=== PATIENT | male | born 1965 | race African-American/Black ===

== ENCOUNTER 2016-06-17 06:52 | Emergency (ER) | payer OTHER ==
[~2016-06-17] VITALS: Ht 172.7 cm; Wt 100.0 kg
[~2016-06-17 06:52] MED LIST: ACET325T PO; AMLO10TA2 PO; CLON.2 PO; COUM4TAB PO; DOCU1CAP39 PO; HYDR25TA35 PO; LISI-515 PO; PRAV40TA2 PO; [UNRECOGNIZED DRUG - CODE] PO
[2016-06-17 06:54] VITALS: BP 177/94; PULSE 62; RESP 15; TEMP 97.9; O2SAT 97
[2016-06-17 07:09] VITALS: BP 137/89; PULSE 62; RESP 18; O2SAT 99
[2016-06-17] MEDS ORDERED: WARF-23 PO (10:37)
== END 2016-06-17 07:19 | disposition left against medical advice (07) ==
LOC: NED 06:52
DX: R51 Headache (principal)
CPT/HCPCS: 99281

== ENCOUNTER 2016-06-17 09:09 | Emergency (ER) | payer OTHER ==
[~2016-06-17] VITALS: Ht 172.7 cm; Wt 94.5 kg
[2016-06-17 09:13] VITALS: BP 138/90; PULSE 68; RESP 16; TEMP 97.7; O2SAT 96
[2016-06-17] MEDS ORDERED: ONDANSETRON HCL 4 MG/2 ML VIAL IV PUSH ONE (10:15)
[2016-06-17] MEDS ORDERED: MORPHINE SULFATE 4 MG/ML INJ IV PUSH ONE (10:15)
[2016-06-17] MEDS ORDERED: SODIUM CHLORID 0.9% 500 ML INJ 500 ML IV ONE (10:15)
--- NOTE | 2016-06-17 10:15 | PD ---
HPI Chief Complaint: Headache Time Seen by Provider: 09:57 Travel History International Travel<30 days: No Contact w/Intl Traveler<30days: No Traveled to known affect area: No History of Present Illness HPI The patient is a 51-year-old [place]ia male who presents emergency department for headache. The patient developed a headache last night watching TV. The headache came on in a subacute timeframe, is located right temporal parietal area, and has persisted throughout the night. The patient then states that the headache resolved this morning, however, has returned. The headache is dull and not associated with any photophobia, blurry vision, nausea, vomiting , or abdominal pain. The patient does have a history of 3 previous CVAs and is currently on Coumadin, which she states was subtherapeutic upon last INR evaluation. The patient states he recently increased his Coumadin dose to 10 mg on Tuesday and Tuesday and 5 mg the remaining days. He denies any acute weakness of the left or right side, however, notes chronic left-sided weakness from previous CVA. PFSH Past Medical History Hx Anticoagulant Therapy: Yes Arthritis: No Asthma: No Autoimmune Disease: No Anxiety: No Depression: No Heart Rhythm Problems: No Cancer: No Cardiovascular Problems: Yes High Cholesterol: Yes Chemotherapy: No Chest Pain: No Congestive Heart Failure: Yes COPD: No Cerebrovascular Accident: Yes Diabetes: No Diminished Hearing: No Endocrine: No GERD: No Genitourinary: Yes Hiatal Hernia: No Hypertension: Yes Immune Disorder: No Kidney Stones: No Musculoskeletal: No Neurologic: Yes Psychiatric: No Reproductive: No Respiratory: No Immunizations Current: Yes Migraines: No Radiation Therapy: No Renal Failure: No Seizures: No Sickle Cell Disease: No Sleep Apnea: No Thyroid Disease: No Ulcer: No Tetanus Vaccination: Unknown Influenza Vaccination: Yes Past Surgical History Surgical History: No Previous Surgery Abdominal Surgery: No AICD: No Arteriovenous Shunt: No Cardiac Surgery: No Ear Surgery: No Endocrine Surgery: No Eye Surgery: No Genitourinary Surgery: No Gynecologic Surgery: No Insulin Pump: No Joint Replacement: No Oral Surgery: No Pacemaker: No Thoracic Surgery: No Other Surgery: No Social History Alcohol Use: No Tobacco Use: No Substance Use: No Allergies-Medications (Allergen,Severity, Reaction): Coded Allergies: No Known Allergies (Unverified , 06/17/16) Reported Meds & Prescriptions Reported Meds & Active Scripts Active Hydralazine (Hydralazine HCl) 25 Mg Tab 25 Mg PO Q8HR Catapres (Clonidine) 0.2 Mg Tab 0.2 Mg PO TID Reported Warfarin 5 Mg Tab 5 Mg PO DAILY Lisinopril 20 Mg Tab 20 Mg PO DAILY Pravastatin 40 Mg Tab 40 Mg PO DAILY Amlodipine (Amlodipine Besylate) 10 Mg Tab 10 Mg PO DAILY Review of Systems Except as stated in HPI: all other systems reviewed are Neg Eyes: No: Blurred Vision, Photophobia HENT: Positive: Headaches, No: Neck Pain Cardiovascular: No: Chest Pain or Discomfort Respiratory: No: Shortness of Breath Gastrointestinal: No: Nausea, Vomiting, Abdominal Pain Musculoskeletal: Positive: Weakness (chronic left-sided weakness from previous CVA, no acute changes per the patient's report) Neurologic: Positive: Weakness (chronic left-sided weakness from previous CVA) , Headache Physical Exam Narrative GENERAL: Awake, alert, pleasant 51-year-old male who appears his stated age and is in no acute respiratory distress. SKIN: Warm and dry. HEAD: Atraumatic. Normocephalic. EYES: Pupils equal and round. Pupils are 2 mm bilateral and reactive. Mild lid lag on the left eye. ENT: No nasal bleeding or discharge. Mucous membranes pink and moist. NECK: Trachea midline. No JVD. CARDIOVASCULAR: Regular rate and rhythm. No murmur appreciated. RESPIRATORY: No accessory muscle use. Clear to auscultation. Breath sounds equal bilaterally. GASTROINTESTINAL: Abdomen soft, non-tender, nondistended. No rebound tenderness. MUSCULOSKELETAL: No obvious deformities. No clubbing. No cyanosis. No edema. NEUROLOGICAL: Awake and alert. No obvious cranial nerve deficits. Mild drift to left lower extremity, no drift of the upper extremities. PSYCHIATRIC: Appropriate mood and affect; insight and judgment normal. Data Data Last Documented VS Vital Signs Date Time Temp Pulse Resp B/P Pulse Ox O2 Delivery O2 Flow Rate FiO2 06/17/16 09:50 Room Air 06/17/16 09:13 97.7 68 16 138/[address] Brain W/O Iv Contrast(Rout) (06/17/16 ) Act Partial Throm Time (Ptt) (06/17/16 10:04) Prothrombin Time / Inr (Pt) (06/17/16 10:04) Complete Blood Count With Diff (06/17/16 10:04) Basic Metabolic Panel (Bmp) (06/17/16 10:04) Morphine Inj (Morphine Inj) (06/17/16 10:15) Ondansetron Inj (Zofran Inj) (06/17/16 10:15) Sodium Chlorid 0.9% 500 Ml Inj (Ns 500 M (06/17/16 10:15) Labs Laboratory Tests Test 06/17/16 10:25 White Blood Count 5.1 TH/MM3 Red Blood Count 6.45 MIL/MM3 Hemoglobin 16.1 GM/DL Hematocrit 49.7 % Mean Corpuscular Volume 77.1 FL Mean Corpuscular Hemoglobin 25.0 PG Mean Corpuscular Hemoglobin 32.4 % Concent Red Cell Distribution Width 16.7 % Platelet Count 311 TH/MM3 Mean Platelet Volume 7.6 FL Neutrophils (%) (Auto) 60.8 % Lymphocytes (%) (Auto) 28.8 % Monocytes (%) (Auto) 7.5 % Eosinophils (%) (Auto) 2.2 % Basophils (%) (Auto) 0.7 % Neutrophils # (Auto) 3.1 TH/MM3 Lymphocytes # (Auto) 1.5 TH/MM3 Monocytes # (Auto) 0.4 TH/MM3 Eosinophils # (Auto) 0.1 TH/MM3 Basophils # (Auto) 0.0 TH/MM3 CBC Comment DIFF FINAL Differential Comment Prothrombin Time 23.1 SEC Prothromb Time International 2.0 RATIO Ratio Activated Partial 41.8 SEC Thromboplast Time Sodium Level 140 MEQ/L Potassium Level 5.6 MEQ/L Chloride Level 108 MEQ/L Carbon Dioxide Level 28.6 MEQ/L Anion Gap 3 MEQ/L Blood Urea Nitrogen 18 MG/DL Creatinine 1.53 MG/DL Estimat Glomerular Filtration 59 ML/MIN Rate Random Glucose 93 MG/DL Calcium Level 8.9 MG/DL [facility] Medical Decision Making Medical Screen Exam Complete: Yes Emergency Medical Condition: Yes Medical Record Reviewed: Yes Interpretation(s) Laboratory Tests Test 06/17/16 10:25 White Blood Count 5.1 TH/MM3 Red Blood Count 6.45 MIL/MM3 Hemoglobin 16.1 GM/DL Hematocrit 49.7 % Mean Corpuscular Volume 77.1 FL Mean Corpuscular Hemoglobin 25.0 PG Mean Corpuscular Hemoglobin 32.4 % Concent Red Cell Distribution Width 16.7 % Platelet Count 311 TH/MM3 Mean Platelet Volume 7.6 FL Neutrophils (%) (Auto) 60.8 % Lymphocytes (%) (Auto) 28.8 % Monocytes (%) (Auto) 7.5 % Eosinophils (%) (Auto) 2.2 % Basophils (%) (Auto) 0.7 % Neutrophils # (Auto) 3.1 TH/MM3 Lymphocytes # (Auto) 1.5 TH/MM3 Monocytes # (Auto) 0.4 TH/MM3 Eosinophils # (Auto) 0.1 TH/MM3 Basophils # (Auto) 0.0 TH/MM3 CBC Comment DIFF FINAL Differential Comment Prothrombin Time 23.1 SEC Prothromb Time International 2.0 RATIO Ratio Activated Partial 41.8 SEC Thromboplast Time Sodium Level 140 MEQ/L Potassium Level 5.6 MEQ/L Chloride Level 108 MEQ/L Carbon Dioxide Level 28.6 MEQ/L Anion Gap 3 MEQ/L Blood Urea Nitrogen 18 MG/DL Creatinine 1.53 MG/DL Estimat Glomerular Filtration 59 ML/MIN Rate Random Glucose 93 MG/DL Calcium Level 8.9 MG/DL Last Impressions Head CT 06/17/16 0000 Signed Impressions: Service Date/Time: June 10:45 - CONCLUSION: Encephalomalacia involving the left medial cerebellum at the site of prior infarct. Stable diffuse white matter atrophy with no evidence of acute abnormality.. Lisa Whitley MD Differential Diagnosis Differential diagnosis includes subarachnoid hemorrhage, intracranial hemorrhage , subdural hemorrhage, tension headache, migraine, temporal arteritis. Narrative Course IV was established, labs were drawn and sent, and the patient was placed on monitoring. CT of the brain was obtained. Platelets, PT/INR, and PTT were sent to lab. The patient was administered morphine, Zofran, and IV fluids for his headache. INR is therapeutic 2.0. Potassium is mildly elevated at 5.6, however, there was moderate hemolysis. Creatinine is slightly elevated at 1.53. CT of the brain reveals chronic changes with encephalomalacia, but no evidence of acute hemorrhage. Patient is stable for outpatient follow-up. The patient was reassessed at 11:16 AM, his headache had resolved. Patient is stable for outpatient follow-up. Diagnosis Primary Impression: Cephalgia Qualified Code: R51 - Acute nonintractable headache, unspecified headache type Additional Instructions: Please provide the patient a copy of his CT results and lab results at discharge. Follow-up with your primary physician. Return if symptoms worsen or progress. Med/Other Pt SpecificInfo: No Change to Meds Disposition: 01 DISCHARGE HOME Condition: Stable Yoshi Moulton MD Jun 17, 2016 10:15
[2016-06-17 10:35] LABS: AUTOMATED NEUTROPHIL # 3.1 TH/MM3 (1.8-7.7); BASOPHIL % 0.7 % (0.0-2.0); EOSINOPHIL # 0.1 TH/MM3 (0-0.4); EOSINOPHIL % 2.2 % (0.0-4.0); HEMATOCRIT 49.7 % (39.0-51.0); HEMO FLAGS DIFF FINAL; LYMPH % 28.8 % (9.0-44.0); LYMPHOCYTE # 1.5 TH/MM3 (1.0-4.8); MEAN CELL VOLUME 77.1 FL (80.0-100.0); MEAN CORPUSCULAR HGB CONC 32.4 % (32.0-36.0); MONO % 7.5 % (0.0-8.0); NEUT % 60.8 % (16.0-70.0); PLATELET COUNT 311 TH/MM3 (150-450); RED BLOOD COUNT 6.45 MIL/MM3 (4.50-5.90); RED CELL DISTRIBUTION WIDTH 16.7 % (11.6-17.2); WHITE BLOOD COUNT 5.1 TH/MM3 (4.0-11.0)
[2016-06-17] MEDS ORDERED: WARF-23 PO (10:37)
[2016-06-17 10:44] LABS: APTT (PATIENT) 41.8 SEC (24.3-30.1); PROTHROMBIN TIME - PATIENT 23.1 SEC (9.8-11.6)
[2016-06-17 10:52] LABS: BICARBONATE 28.6 MEQ/L (21.0-32.0); POTASSIUM 5.6 MEQ/L (3.5-5.1)
--- NOTE | 2016-06-17 10:57 | RADRPT ---
EXAM DATE/TIME: 06/17/2016 10:45 [facility] COMPARISON: MRI BRAIN W/O CONTRAST, December 05, 2014, 12:55. CT BRAIN W/O CONTRAST, December 16, 2013, 11:35. INDICATIONS : Headache for 2 days RADIATION DOSE: 37.47 CTDIvol (mGy) MEDICAL HISTORY : Hypertension. Cardiovascular disease Cerebrovascular disease. SURGICAL HISTORY : None. ENCOUNTER: Initial ACUITY: 2 days PAIN SCALE: 5/10 LOCATION: cranial TECHNIQUE: Multiple contiguous axial images were obtained of the head. Using automated exposure control and adj ustment of the mA and/or kV according to patient size, radiation dose was kept as low as reasonably a chievable to obtain optimal diagnostic quality images. FINDINGS: There is encephalomalacia identified within the posterior and medial left cerebellum at the site of prior infarct. The remainder of the cerebellum is normal in morphology and attenuation. Supratentorially there is stable bilateral periventricular white matter hypodensity and stable m ild prominence of the ventricles and sulci secondary to diffuse white matter atrophy. No evidence of mass effect or midline shift. No evidence of subarachnoid hemorrhage. The sinuses and mastoid air cells are clear. Orbits are normal. Osseous structures are intact. CONCLUSION: Encephalomalacia involving the left medial cerebellum at the site of prior infarct. Stable diffuse wh ite matter atrophy with no evidence of acute abnormality.. Lisa Whitley MD on June 17, 2016 at 10:52 Board Certified Radiologist. This report was verified electronically.
== END 2016-06-17 11:30 | disposition home or self-care (01) ==
LOC: NETRI 09:09
DX: R51 Headache (principal); R82.99 Other abnormal findings in urine; I10 Essential (primary) hypertension; Z79.01 Long term (current) use of anticoagulants; E78.00 Pure hypercholesterolemia, unspecified; I50.9 Heart failure, unspecified; Z86.73 Personal history of transient ischemic attack (TIA), and cerebral infarction without residual deficits
CPT/HCPCS: 70450; 80048; 85025; 85610; 85730; 96361; 96374; 96375; 99284; J2270; J2405; J7040

== ENCOUNTER 2016-08-18 08:18 | Observation (INO) | payer OTHER ==
[2016-08-18] VITALS (7 sets, daily range): BP systolic 135–151; BP diastolic 80–96; PULSE 54–66; RESP 14–20; TEMP 98; O2SAT 97–99
[~2016-08-18] VITALS: Ht 172.7 cm; Wt 95.0 kg
[~2016-08-18 08:18] MED LIST changes: -ACET325T PO; -COUM4TAB PO; -DOCU1CAP39 PO; +WARF-23 PO; -[UNRECOGNIZED DRUG - CODE] PO
[2016-08-18] MEDS ORDERED: SODIUM CHLORIDE 0.9% FLUSH 5 ML FLUSH IVF PRN ×2 (08:45→12:30)
--- NOTE | 2016-08-18 08:48 | PD ---
HPI Chief Complaint: Chest Pain Time Seen by Provider: 08:19 Travel History International Travel<30 days: No Contact w/Intl Traveler<30days: No Traveled to known affect area: No History of Present Illness HPI The patient is a 51-year-old [place] male who presents emergency department via EMS for chest pain. The patient states he developed chest pain yesterday after awakening from bed. The chest pain was left-sided, nonradiating , dull and achy, and constant. The patient denied any shortness breath, nausea , vomiting, or diaphoresis. The patient states the pain was persisting, was alleviated when EMS administered nitroglycerin and an aspirin. The patient does have a history of previous CVA and is currently on Coumadin. He also has a history of hypertension and hyperlipidemia and resides in an [facility]. The patient thinks he may have had a stress test last year performed at [facility]. The patient's primary physician is Dr. Dillon. The patient denies any exertional symptoms. He does note a history of residual left-sided weakness from his previous CVA but is able to ambulate. PFSH Past Medical History Hx Anticoagulant Therapy: Yes Arthritis: No Asthma: No Autoimmune Disease: No Anxiety: No Depression: No Heart Rhythm Problems: No Cancer: No Cardiovascular Problems: Yes High Cholesterol: Yes Chemotherapy: No Chest Pain: No Congestive Heart Failure: Yes COPD: No Cerebrovascular Accident: Yes (X4 TIA) Diabetes: No Diminished Hearing: No Endocrine: No GERD: No Genitourinary: Yes Hiatal Hernia: No Hypertension: Yes Immune Disorder: No Kidney Stones: No Musculoskeletal: No Neurologic: Yes Psychiatric: No Reproductive: No Respiratory: No Immunizations Current: Yes Migraines: No Radiation Therapy: No Renal Failure: No Seizures: No Sickle Cell Disease: No Sleep Apnea: No Thyroid Disease: No Ulcer: No Past Surgical History Abdominal Surgery: No AICD: No Arteriovenous Shunt: No Cardiac Surgery: No Ear Surgery: No Endocrine Surgery: No Eye Surgery: No Genitourinary Surgery: No Gynecologic Surgery: No Insulin Pump: No Joint Replacement: No Oral Surgery: No Pacemaker: No Thoracic Surgery: No Other Surgery: No Social History Alcohol Use: No Tobacco Use: No Substance Use: No Allergies-Medications (Allergen,Severity, Reaction): Coded Allergies: No Known Allergies (Unverified , 08/18/16) Reported Meds & Prescriptions Reported Meds & Active Scripts Active Hydralazine (Hydralazine HCl) 25 Mg Tab 25 Mg PO Q8HR Catapres (Clonidine) 0.2 Mg Tab 0.2 Mg PO TID Reported Hydroxyzine Pamoate 50 Mg Cap 50 Mg PO DAILY Warfarin 5 Mg Tab 5 Mg PO DAILY Lisinopril 20 Mg Tab 20 Mg PO DAILY Pravastatin 40 Mg Tab 40 Mg PO DAILY Amlodipine (Amlodipine Besylate) 10 Mg Tab 10 Mg PO DAILY Review of Systems Except as stated in HPI: all other systems reviewed are Neg General / Constitutional: No: Fever HENT: No: Lightheadedness Cardiovascular: Positive: Chest Pain or Discomfort, No: Diaphoresis, Dyspnea on exertion Respiratory: No: Shortness of Breath Gastrointestinal: No: Nausea, Vomiting, Abdominal Pain Musculoskeletal: Positive: Weakness (residual left-sided weakness from previous CVA) Neurologic: No: Dizziness Physical Exam Narrative GENERAL: Awake, alert, pleasant 51-year-old male who appears his stated age and is in no acute respiratory distress. SKIN: Warm and dry. HEAD: Atraumatic. Normocephalic. EYES: No injection or drainage. ENT: No nasal bleeding or discharge. Mucous membranes pink and moist. NECK: Trachea midline. No JVD. CARDIOVASCULAR: Regular rate and rhythm. No murmur appreciated. Heart rate in the 60s. RESPIRATORY: No accessory muscle use. Clear to auscultation. Breath sounds equal bilaterally. GASTROINTESTINAL: Abdomen soft, non-tender, nondistended. No rebound tenderness. MUSCULOSKELETAL: No obvious deformities. No clubbing. No cyanosis. No edema. NEUROLOGICAL: Awake and alert. No obvious cranial nerve deficits. Moves all 4 extremities. PSYCHIATRIC: Appropriate mood and affect; insight and judgment normal. Data Data Last Documented VS Vital Signs Date Time Temp Pulse Resp B/P Pulse Ox O2 Delivery O2 Flow Rate FiO2 08/18/16 09:29 137/84 135/80 08/18/16 09:24 98 Nasal Cannula 2 08/18/16 09:24 18 08/18/16 08:21 98.0 65 Orders Electrocardiogram (08/18/16 08:40) Ckmb (Isoenzyme) Profile (08/18/16 08:40) Complete Blood Count With Diff (08/18/16 08:40) Comprehensive Metabolic Panel (08/18/16 08:40) Magnesium (Mg) (08/18/16 08:40) Prothrombin Time / Inr (Pt) (08/18/16 08:40) Act Partial Throm Time (Ptt) (08/18/16 08:40) Troponin I (08/18/16 08:40) Lipase (08/18/16 08:40) Chest, Single Ap (08/18/16 08:40) Ecg Monitoring (08/18/16 08:40) Bilateral Bp Monitoring (08/18/16 08:40) Iv Access Insert/Monitor (08/18/16 08:40) Oximetry (08/18/16 08:40) Oxygen Administration (08/18/16 08:40) Sodium Chloride 0.9% Flush (Ns Flush) (08/18/16 08:45) CKMB (08/18/16 10:33) CKMB% (08/18/16 10:33) Admit Order (Ed Use Only) (08/18/16 11:39) Labs Laboratory Tests Test 08/18/16 08/18/16 10:23 10:33 Prothrombin Time 28.5 SEC Prothromb Time International 2.5 RATIO Ratio Activated Partial 48.6 SEC Thromboplast Time White Blood Count 6.4 TH/MM3 Red Blood Count 5.68 MIL/MM3 Hemoglobin 14.7 GM/DL Hematocrit 44.1 % Mean Corpuscular Volume 77.6 FL Mean Corpuscular Hemoglobin 25.8 PG Mean Corpuscular Hemoglobin 33.3 % Concent Red Cell Distribution Width 17.5 % Platelet Count 273 TH/MM3 Mean Platelet Volume 7.3 FL Neutrophils (%) (Auto) 56.3 % Lymphocytes (%) (Auto) 30.1 % Monocytes (%) (Auto) 10.3 % Eosinophils (%) (Auto) 2.7 % Basophils (%) (Auto) 0.6 % Neutrophils # (Auto) 3.6 TH/MM3 Lymphocytes # (Auto) 1.9 TH/MM3 Monocytes # (Auto) 0.7 TH/MM3 Eosinophils # (Auto) 0.2 TH/MM3 Basophils # (Auto) 0.0 TH/MM3 CBC Comment DIFF FINAL Differential Comment Sodium Level 140 MEQ/L Potassium Level 4.5 MEQ/L Chloride Level 105 MEQ/L Carbon Dioxide Level 26.6 MEQ/L Anion Gap 8 MEQ/L Blood Urea Nitrogen 13 MG/DL Creatinine 1.43 MG/DL Estimat Glomerular Filtration 63 ML/MIN Rate Random Glucose 87 MG/DL Calcium Level 8.8 MG/DL Magnesium Level 2.2 MG/DL Total Bilirubin 0.3 MG/DL Aspartate Amino Transf 16 U/L (AST/SGOT) Alanine Aminotransferase 36 U/L (ALT/SGPT) Alkaline Phosphatase 94 U/L Total Creatine Kinase 183 U/L Creatine Kinase MB 1.1 NG/ML Troponin I LESS THAN 0.02 NG/ML Total Protein 7.7 GM/DL Albumin 3.5 GM/DL Lipase 138 U/L Exceptions Acute Myocardial Infarction ASA Not Given on Arrival: Already Given by EMS Aspirin Comment: EMS provided 162 mg of aspirin orally. MDM Medical Decision Making Medical Screen Exam Complete: Yes Emergency Medical Condition: Yes Medical Record Reviewed: Yes Interpretation(s) EKG reveals normal sinus rhythm with a rate of 66. Borderline first-degree AV block with VA interval 211 ms. Inverted T-wave noted in lead 1, aVL, and V6. Mild ST elevation in V3 that is not present in V4 V2, does not meet STEMI criteria. Inverted T waves seen in 1 and aVL as well as V6 are not new compared to EKG performed May 19, 2016. Last Impressions Chest X-Ray 08/18/16 0840 Signed Impressions: Service Date/Time: Thursday, August 18, 2016 08:49 - CONCLUSION: Moderate congestive failure without pneumothorax.. Ag March MD FACR Laboratory Tests Test 08/18/16 08/18/16 10:23 10:33 Prothrombin Time 28.5 SEC Prothromb Time International 2.5 RATIO Ratio Activated Partial 48.6 SEC Thromboplast Time White Blood Count 6.4 TH/MM3 Red Blood Count 5.68 MIL/MM3 Hemoglobin 14.7 GM/DL Hematocrit 44.1 % Mean Corpuscular Volume 77.6 FL Mean Corpuscular Hemoglobin 25.8 PG Mean Corpuscular Hemoglobin 33.3 % Concent Red Cell Distribution Width 17.5 % Platelet Count 273 TH/MM3 Mean Platelet Volume 7.3 FL Neutrophils (%) (Auto) 56.3 % Lymphocytes (%) (Auto) 30.1 % Monocytes (%) (Auto) 10.3 % Eosinophils (%) (Auto) 2.7 % Basophils (%) (Auto) 0.6 % Neutrophils # (Auto) 3.6 TH/MM3 Lymphocytes # (Auto) 1.9 TH/MM3 Monocytes # (Auto) 0.7 TH/MM3 Eosinophils # (Auto) 0.2 TH/MM3 Basophils # (Auto) 0.0 TH/MM3 CBC Comment DIFF FINAL Differential Comment Sodium Level 140 MEQ/L Potassium Level 4.5 MEQ/L Chloride Level 105 MEQ/L Carbon Dioxide Level 26.6 MEQ/L Anion Gap 8 MEQ/L Blood Urea Nitrogen 13 MG/DL Creatinine 1.43 MG/DL Estimat Glomerular Filtration 63 ML/MIN Rate Random Glucose 87 MG/DL Calcium Level 8.8 MG/DL Magnesium Level 2.2 MG/DL Total Bilirubin 0.3 MG/DL Aspartate Amino Transf 16 U/L (AST/SGOT) Alanine Aminotransferase 36 U/L (ALT/SGPT) Alkaline Phosphatase 94 U/L Total Creatine Kinase 183 U/L Creatine Kinase MB 1.1 NG/ML Troponin I LESS THAN 0.02 NG/ML Total Protein 7.7 GM/DL Albumin 3.5 GM/DL Lipase 138 U/L Differential Diagnosis Differential diagnoses includes acute coronary syndrome, pancreatitis, pleural effusion, pneumonia, musculoskeletal pain, GERD, esophageal spasm. Narrative Course IV was established, labs were drawn and sent, and the patient was placed on cardiac telemetry monitoring and continuous pulse oximetry monitoring. EKG was ordered and interpreted. The patient received aspirin and nitroglycerin by EMS prior to arrival with alleviation of his symptoms. PTT/INR was sent to lab. Chest x-ray was obtained. INR is therapeutic at 2.5. Troponin is negative. Chest x-ray read by radiology says moderate CHF, however, when compared to previous chest x-ray, appears improved. The patient has no shortness of breath but chest pain, I reviewed the EMR, cannot find an old stress test in the last 3 years. Therefore, patient will be 23 hour observation to the chest pain Center. Physician Communication Physician Communication The patient will be a 23 hour observation to chest pain center for serial cardiac enzymes and further evaluation by cardiology. Diagnosis Primary Impression: Chest pain Qualified Code: R07.9 - Chest pain, unspecified type Admitting Information Admitting Physician Requests: Observation Condition: Stable Yoshi Moulton MD Aug 18, 2016 08:48
--- NOTE | 2016-08-18 09:10 | RADRPT ---
EXAM DATE/TIME: 08/18/2016 08:49 [facility] COMPARISON: CHEST SINGLE AP, December 08, 2014, 13:55. INDICATIONS : Chest Pain MEDICAL HISTORY : Hypertension. Cardiovascular disease. Cerebrovascular disease. SURGICAL HISTORY : None. ENCOUNTER: Initial ACUITY: 1 day PAIN SCORE: 7/10 LOCATION: Bilateral chest FINDINGS: There is moderate interstitial edema and cardiomegaly consistent with congestive failure. There is no pneumothorax. The portion of the bony skeleton visualized is unremarkable. CONCLUSION: Moderate congestive failure without pneumothorax.. Ag March MD FACR on August 18, 2016 at 9:08 Board Certified Radiologist. This report was verified electronically.
[2016-08-18] MEDS ORDERED: HYDR50CA PO (09:24)
[2016-08-18 11:03] LABS: AUTOMATED NEUTROPHIL # 3.6 TH/MM3 (1.8-7.7); BASOPHIL % 0.6 % (0.0-2.0); EOSINOPHIL # 0.2 TH/MM3 (0-0.4); EOSINOPHIL % 2.7 % (0.0-4.0); HEMATOCRIT 44.1 % (39.0-51.0); HEMO FLAGS DIFF FINAL; LYMPH % 30.1 % (9.0-44.0); LYMPHOCYTE # 1.9 TH/MM3 (1.0-4.8); MEAN CELL VOLUME 77.6 FL (80.0-100.0); MEAN CORPUSCULAR HEMOGLOBIN 25.8 PG (27.0-34.0); MEAN CORPUSCULAR HGB CONC 33.3 % (32.0-36.0); MONO % 10.3 % (0.0-8.0); NEUT % 56.3 % (16.0-70.0); PLATELET COUNT 273 TH/MM3 (150-450); RED BLOOD COUNT 5.68 MIL/MM3 (4.50-5.90); RED CELL DISTRIBUTION WIDTH 17.5 % (11.6-17.2); WHITE BLOOD COUNT 6.4 TH/MM3 (4.0-11.0)
[2016-08-18 11:12] LABS: APTT (PATIENT) 48.6 SEC (24.3-30.1); INTERNATIONAL NORMALIZED RATIO 2.5 RATIO; PROTHROMBIN TIME - PATIENT 28.5 SEC (9.8-11.6)
[2016-08-18 11:21] LABS: ALT (GPT) 36 U/L (12-78); ANION GAP 8 MEQ/L (5-15); AST (GOT) 16 U/L (15-37); BICARBONATE 26.6 MEQ/L (21.0-32.0); BLOOD UREA NITROGEN 13 MG/DL (7-18); CHLORIDE 105 MEQ/L (98-107); GLOMERULAR FILTRATION RATE 63 ML/MIN (>89); MAGNESIUM 2.2 MG/DL (1.5-2.5); POTASSIUM 4.5 MEQ/L (3.5-5.1); SODIUM (NA) 140 MEQ/L (136-145)
[2016-08-18 11:25] LABS: ALKALINE PHOSPHATASE 94 U/L (45-117); CREATINE KINASE 183 U/L (39-308); TOTAL BILIRUBIN ADULT 0.3 MG/DL (0.2-1.0)
[2016-08-18 11:37] LABS: CKMB 1.1 NG/ML (0.5-3.6)
[2016-08-18] MEDS ORDERED: ACETAMINOPHEN/HYDROcodone 325 MG/7.5 MG TAB PO PRN (12:30)
[2016-08-18] MEDS ORDERED: ACETAMINOPHEN 500 MG CPLT PO PRN (12:30)
[2016-08-18] MEDS ORDERED: ONDANSETRON HCL 4 MG/2 ML VIAL IV PRN (12:30)
--- NOTE | 2016-08-18 12:50 | RADRPT ---
EXAM DATE/TIME: 08/18/2016 12:48 [facility] COMPARISON: CHEST PA & LAT, December 07, 2014, 10:51. INDICATIONS : Short of Breath MEDICAL HISTORY : Hypertension. Cardiovascular disease. Cerebrovascular disease. SURGICAL HISTORY : None. ENCOUNTER: Subsequent ACUITY: 1 day PAIN SCORE: 0/10 LOCATION: Bilateral chest FINDINGS: The lungs are clear. The heart is minimally enlarged. The pulmonary vascularity is normal. There is n o evidence for infiltrate or failure. The portion of the bony skeleton visualized is unremarkable. CONCLUSION: Compensated cardiomegaly otherwise negative. Ag March MD FACR on August 18, 2016 at 12:48 Board Certified Radiologist. This report was verified electronically.
--- NOTE | 2016-08-18 13:14 | HHI.HP ---
[facility] Primary Care Physician Hernán Gonzalez M.D. Chief Complaint Chest pain History of Present Illness This is a 51-year-old male with history of hypertension, hyperlipidemia, and CVA that presents via [facility] with a complaint of chest discomfort. He states he had a left-sided chest discomfort that began yesterday morning and remainder all day and all night. Is there when he woke up this morning. At that point he called 911. He states that the paramedics gave him aspirin and supplemental nitroglycerin in the pain resolve within 5 minutes. The discomfort has not recurred. He had no associated shortness breath nausea or diaphoresis. The discomfort did not radiate. He found nothing to worsen the discomfort. He has not noticed swelling in his legs. Denies dyspnea on exertion. Review of Systems General: Patient denies fevers, chills recent, and recent travel HEENT: Patient denies headache, sore throat, difficulty swallowing. Cardiovascular: Has the chest discomfort as mentioned above. Denies sensation of heart beating rapidly or irregularly. No syncope. Respiratory: Denies shortness of breath or inspirational chest discomfort. Denies coughing wheezing or hemoptysis. GI: Patient denies nausea, vomiting, diarrhea, abdominal pain, bloody stools. Musculoskeletal: Patient denies joint pain or edema. Denies calf pain or edema. Neurovascular: Patient denies numbness, tingling in extremities. Denies headache. For the most part his symptoms from prior CVAs have resolved. He does have a little residual weakness in his left upper lower extremities when he uses those extremities too much. Endocrine: Denies polyuria and polydipsia. Hematologic: Denies easy bruising. Skin: Denies rash or itching. Past Family Social History Allergies: Coded Allergies: No Known Allergies (Unverified , 08/18/16) Past Medical History Hypertension, hyperlipidemia, CVA 3 with his first being in 2010 was recently 2014. He always affected the left side. Denies diabetes and known CAD. Past Surgical History Denies Reported Medications Reported Meds & Active Scripts Active Hydralazine (Hydralazine HCl) 25 Mg Tab 25 Mg PO Q8HR Catapres (Clonidine) 0.2 Mg Tab 0.2 Mg PO TID Reported Hydroxyzine Pamoate 50 Mg Cap 50 Mg PO DAILY Warfarin 5 Mg Tab 5 Mg PO DAILY Lisinopril 20 Mg Tab 20 Mg PO DAILY Pravastatin 40 Mg Tab 40 Mg PO DAILY Amlodipine (Amlodipine Besylate) 10 Mg Tab 10 Mg PO DAILY Active Ordered Medications Current Medications Medications (Trade) Dose Ordered Sig/[place] Route Start Time Stop Time Status Last Admin (NS Flush) 2 ml UNSCH PRN IVF 08/18/16 08:45 (NS Flush) 2 ml UNSCH PRN IVF 08/18/16 12:30 UNV (NS Flush) 2 ml BID IVF 08/18/16 21:00 UNV (Tylenol) 500 mg Q4H PRN PO 08/18/16 12:30 UNV ([place] 7.5-325 Mg) 1 tab Q4H PRN PO 08/18/16 12:30 UNV (Zofran Inj) 4 mg Q6H PRN IV 08/18/16 12:30 UNV (Coumadin) 5 mg DAILY PO 08/18/16 16:00 UNV (Norvasc) 10 mg DAILY PO 08/19/16 09:00 UNV (Catapres) 0.2 mg TID PO 08/18/16 13:00 UNV (Apresoline) 25 mg Q8HR PO 08/18/16 14:00 UNV (Vistaril) 50 mg DAILY PO 08/19/16 09:00 UNV (Prinivil) 20 mg DAILY PO 08/19/16 09:00 UNV (Pravachol) 40 mg DAILY PO 08/19/16 09:00 UNV Family History Denies family history of CAD. Social History Patient does not smoke, drink alcohol, or use illicit drugs. Physical Exam Vital Signs Vital Signs Date Time Temp Pulse Resp B/P Pulse Ox O2 Delivery O2 Flow Rate FiO2 08/18/16 11:00 54 14 142/90 97 Nasal Cannula 2 08/18/16 09:29 137/84 135/80 08/18/16 09:24 98 Nasal Cannula 2 08/18/16 09:24 18 98 Nasal Cannula 2 08/18/16 08:21 98.0 65 20 137/84 99 Physical Exam GENERAL: This is a well-nourished, well-developed patient, in no apparent distress. Patient speaks in clear complete sentences. Patient is pleasant. HEENT: Head is atraumatic and normocephalic. Neck is supple without lymphadenopathy and trachea is midline. No JVD or carotid bruits. CARDIOVASCULAR: Regular rate and rhythm without murmurs, gallops, or rubs. RESPIRATORY: Clear to auscultation. Breath sounds equal bilaterally. No wheezes , rales, or rhonchi. Chest wall is nontender. No use of accessory muscles. GASTROINTESTINAL: Abdomen is nontender, nondistended. Abdomen soft. No obvious pulsatile mass or bruit. No CVA tenderness. Strong femoral pulses bilaterally. Normal bowel sounds in all quadrants. MUSCULOSKELETAL: Patient is moving upper and lower extremities freely. No calf tenderness or edema, no Homans sign. Strong pulses in upper and lower extremities. NEUROLOGICAL: Patient is alert and oriented. Cranial nerves 2-12 are grossly intact. No focal deficits and speech is clear. SKIN: No rash and turgor is normal. Laboratory Laboratory Tests Test 08/18/16 08/18/16 10:23 10:33 Prothrombin Time 28.5 Prothromb Time International 2.5 Ratio Activated Partial 48.6 Thromboplast Time White Blood Count 6.4 Red Blood Count 5.68 Hemoglobin 14.7 Hematocrit 44.1 Mean Corpuscular Volume 77.6 Mean Corpuscular Hemoglobin 25.8 Mean Corpuscular Hemoglobin 33.3 Concent Red Cell Distribution Width 17.5 Platelet Count 273 Mean Platelet Volume 7.3 Neutrophils (%) (Auto) 56.3 Lymphocytes (%) (Auto) 30.1 Monocytes (%) (Auto) 10.3 Eosinophils (%) (Auto) 2.7 Basophils (%) (Auto) 0.6 Neutrophils # (Auto) 3.6 Lymphocytes # (Auto) 1.9 Monocytes # (Auto) 0.7 Eosinophils # (Auto) 0.2 Basophils # (Auto) 0.0 CBC Comment DIFF FINAL Differential Comment Sodium Level 140 Potassium Level 4.5 Chloride Level 105 Carbon Dioxide Level 26.6 Anion Gap 8 Blood Urea Nitrogen 13 Creatinine 1.43 Estimat Glomerular Filtration 63 Rate Random Glucose 87 Calcium Level 8.8 Magnesium Level 2.2 Total Bilirubin 0.3 Aspartate Amino Transf 16 (AST/SGOT) Alanine Aminotransferase 36 (ALT/SGPT) Alkaline Phosphatase 94 Total Creatine Kinase 183 Creatine Kinase MB 1.1 Troponin I LESS THAN 0.02 Total Protein 7.7 Albumin 3.5 Lipase 138 Result Diagram: 08/18/16 1033 08/18/16 1033 Imaging Vital Signs Date Time Temp Pulse Resp B/P Pulse Ox O2 Delivery O2 Flow Rate FiO2 08/18/16 11:00 54 14 142/90 97 Nasal Cannula 2 08/18/16 09:29 137/84 135/80 08/18/16 09:24 98 Nasal Cannula 2 08/18/16 09:24 18 98 Nasal Cannula 2 08/18/16 08:21 98.0 65 20 137/84 99 Last 24 hours Impressions Chest X-Ray 08/18/16 0840 Signed Impressions: Service Date/Time: Thursday, August 18, 2016 08:49 - CONCLUSION: Moderate congestive failure without pneumothorax.. Ag March MD FACR Chest X-Ray 08/18/16 0000 Signed Impressions: Service Date/Time: Thursday, August 18, 2016 12:48 - CONCLUSION: Compensated cardiomegaly otherwise negative. Ag March MD FACR Course Initial EKG is sinus rhythm rate of 66 with nonspecific lateral T changes. No significant ST segment depressions or elevations. Assessment and Plan Assessment and Plan * Chest pain: Patient will continue to have serial cardiac enzymes and EKGs for ruling out purposes and will be seen by Dr. Myrick cardiology in the chest pain center. He will likely have a Lexiscan. He would likely be discharged home if the stress test were to be nonischemic. * Hypertension: Continue current medication. * Hyperlipidemia: Continue current medication. * History of CVA: Continue current medication. Patient is stable this time. He is agreeable to this plan. He will need to follow back with his primary care physician after discharge. Del Chowdary Aug 18, 2016 13:14
[2016-08-18] MEDS: cloNIDine HCL 0.2 MG TAB PO SCH ×2 (13:35→18:34)
[2016-08-18] MEDS ORDERED: hydrALAZINE HCL 25 MG TAB PO SCH (14:00)
[2016-08-18 14:08] LABS: CREATINE KINASE 232 U/L (39-308)
[2016-08-18 14:26] LABS: CKMB 1.1 NG/ML (0.5-3.6)
[2016-08-18] MEDS ORDERED: WARFARIN SOD 5 MG TAB PO SCH (16:00)
[2016-08-18] MEDS ORDERED: REGADENOSON INJ 0.4 MG/5 ML SYR ONE (16:40)
--- NOTE | 2016-08-18 17:16 | RADRPT ---
EXAM DATE/TIME: 08/18/2016 15:23 [place] COMPARISON: No previous studies available for comparison. INDICATIONS : Substernal chest pain without radiation. Angina. DOSE: 26.7 mCi Tc99m Myoview at stress. 8.1 mCi Tc99m Myoview at rest. 0.4 mg Lexiscan STRESS SYMPTOMS: Shortness of breath. EJECTION FRACTION: 42% MEDICAL HISTORY : Hypertension. Stroke Hyperlipidemia. SURGICAL HISTORY : None. ENCOUNTER: Initial ACUITY: 1 day PAIN SCALE: 7/10 LOCATION: Substernal chest TECHNIQUE: The patient underwent pharmacologic stress with infusion of prescribed dose. Continuous ECG tracing was monitored during stress. Gated SPECT imaging was performed after stress and conventional SPECT i maging was performed at rest. The examination was performed on a SPECT/CT scanner, both attenuation and non-corrected datasets were reviewed. FINDINGS: DISTRIBUTION: The maximum perfused segment at stress is in the anterior wall. PERFUSION STUDY: There is decreased activity on the stress images at the apical inferior wall and inferior lateral wal l. There is a mild area of decreased activity at the basilar upper septum. GATED STUDY: There is hypokinesis and a reduced ejection fraction. No dyskinetic segment is seen. CONCLUSION: 1. Suspect ischemia at the apical inferior and inferolateral hope and possibly at the basilar upper septum. 2. Decreased ejection fraction of 41%. RISK CATEGORY: Intermediate (1-3% Annual Mortality Rate) Hernán Jones MD on August 18, 2016 at 17:11 Board Certified Radiologist. This report was verified electronically.
--- NOTE | 2016-08-18 18:14 | HHI.DCPOC ---
Discharge Care Plan Diagnosis: (1) Chest pain (2) HTN (hypertension) (3) Hyperlipidemia (4) History of CVA (cerebrovascular accident) Goals to Promote Your Health WILL NEED TO HAVE OUTPATIENT 2D ECHO TO EVALUATE HEART FUNCTION, DISCUSS WITH YOUR PRIMARY CARE PHYSICIAN. * To prevent worsening of your condition and complications * To maintain your health at the optimal level Directions to Meet Your Goals Take your medications as prescribed Follow your dietary instruction Follow activity as directed Keep your appointments as scheduled Take your immunizations and boosters as scheduled If your symptoms worsen call your PCP, if no PCP go to Urgent Care Center or Emergency Room Smoking is Dangerous to Your Health. Avoid second hand smoke Call the 24-hour hour crisis hotline for domestic abuse at Del Chowdary Aug 18, 2016 18:14
[2016-08-18] MEDS ORDERED: SODIUM CHLORIDE 0.9% FLUSH 5 ML FLUSH IVF SCH (21:00)
[2016-08-19] MEDS ORDERED: LISINOPRIL 20 MG TAB PO SCH (09:00)
[2016-08-19] MEDS ORDERED: PRAVASTATIN SOD 40 MG TAB PO SCH (09:00)
--- NOTE | 2016-08-19 14:14 | EKG ---
Date Performed: 08/18/2016 Time Performed: 08:23:29 PTAGE: 51 years EKG: Sinus rhythm WITH FIRST DEGREE AV BLOCK MODERATE INTRAVENTRICULAR CONDUCTION DELAY MODERATE T-WAVE ABNORMALITY, C ONSIDER LATERAL ISCHEMIA ABNORMAL ECG PREVIOUS TRACING : 05/19/2016 08.16 DOCTOR: Lalo Verdugo Interpretating Date/Time 08/19/2016 14:02:59
--- NOTE | 2016-08-19 21:17 | EKG ---
Date Performed: 08/18/2016 Time Performed: 13:18:38 PTAGE: 51 years EKG: SINUS BRADYCARDIA WITH FIRST DEGREE AV BLOCK LEFT VENTRICULAR HYPERTROPHY AND ST-T CHANGE A BNORMAL ECG Since PREVIOUS TRACING , no significant change noted PREVIOUS TRACIN08/18/2016 08.23 DOCTOR: Peggy Myrick Interpretating Date/Time 08/19/2016 21:15:47
--- NOTE | 2016-08-19 21:17 | TR ---
Date Performed: 08/18/2016 Time Performed: 16:18:43 DOCTOR: Peggy Myrick DRUG LIST: CLINICAL HISTORY: REASON FOR TEST: REASON FOR ENDING: OBSERVATION: CONCLUSION: Lexiscan stress test was performed under standard four minute protocol. Radionuclid e was injected one minute prior to ending the test. No electrocardiographic abormalities were present to suggest ischemia. Nuclear imaging and interpretation are pending. COMMENTS:
== END 2016-08-18 20:06 | disposition home or self-care (01) ==
LOC: NEPE 08:18 → NEDA 11:40 → NEPHCDU 15:46
PROVIDERS: ADMIT Internal Medicine Interventional Cardiology; ATTEND Internal Medicine Interventional Cardiology
DX: R07.9 Chest pain, unspecified (principal); E78.5 Hyperlipidemia, unspecified; I11.0 Hypertensive heart disease with heart failure; E78.00 Pure hypercholesterolemia, unspecified; I50.9 Heart failure, unspecified; I69.954 Hemiplegia and hemiparesis following unspecified cerebrovascular disease affecting left non-dominant side; Z79.01 Long term (current) use of anticoagulants
CPT/HCPCS: 71010; 71020; 78452; 80053; 82550; 82552; 83690; 83735; 84484; 85025; 85610; 85730; 93005; 93017; 99285; A9502; G0378; J2785

== ENCOUNTER 2016-08-20 13:40 | Emergency (ER) | payer OTHER ==
[~2016-08-20] VITALS: Ht 172.7 cm; Wt 95.0 kg
[~2016-08-20 13:40] MED LIST changes: +HYDR50CA PO
[2016-08-20 13:44] VITALS: BP 135/80; PULSE 69; RESP 18; TEMP 98; O2SAT 97
[2016-08-20 13:53] VITALS: O2SAT 99
[2016-08-20] MEDS ORDERED: ASPIRIN 81 MG CHEW TAB PO ONE (14:00)
[2016-08-20] MEDS ORDERED: SODIUM CHLORIDE 0.9% FLUSH 5 ML FLUSH IVF PRN (14:00)
[2016-08-20] MEDS ORDERED: KETOROLAC TROMETHAMINE 30 MG/ML (IVP) VIAL IV PUSH ONE (14:00)
[2016-08-20] MEDS: NITROGLYCERIN 0.4 MG SL 25 TABS/BTL SL SCH ×3 (14:00→14:10)
[2016-08-20 14:06] LABS: AUTOMATED NEUTROPHIL # 3.7 TH/MM3 (1.8-7.7); BASOPHIL % 0.5 % (0.0-2.0); EOSINOPHIL # 0.2 TH/MM3 (0-0.4); EOSINOPHIL % 2.5 % (0.0-4.0); HEMATOCRIT 46.8 % (39.0-51.0); HEMO FLAGS DIFF FINAL; LYMPH % 30.9 % (9.0-44.0); MEAN CORPUSCULAR HEMOGLOBIN 25.7 PG (27.0-34.0); MEAN CORPUSCULAR HGB CONC 32.9 % (32.0-36.0); MONO % 8.5 % (0.0-8.0); NEUT % 57.6 % (16.0-70.0); PLATELET COUNT 273 TH/MM3 (150-450); RED CELL DISTRIBUTION WIDTH 17.6 % (11.6-17.2); WHITE BLOOD COUNT 6.5 TH/MM3 (4.0-11.0)
[2016-08-20 14:24] LABS: ANION GAP 8 MEQ/L (5-15); BICARBONATE 24.7 MEQ/L (21.0-32.0); BLOOD UREA NITROGEN 17 MG/DL (7-18); CHLORIDE 106 MEQ/L (98-107); GLOMERULAR FILTRATION RATE 57 ML/MIN (>89); POTASSIUM 4.2 MEQ/L (3.5-5.1); SODIUM (NA) 139 MEQ/L (136-145)
[2016-08-20] MEDS ORDERED: PROT40TA PO (14:35)
--- NOTE | 2016-08-20 14:35 | PD ---
HPI Chief Complaint: Chest Pain Time Seen by Provider: 13:43 Travel History International Travel<30 days: No Contact w/Intl Traveler<30days: No Traveled to known affect area: No History of Present Illness HPI Patient is a 51-year-old male with history of HTN, HLD and previous CVA who presents the emergency department with complaint of chest pain. Patient states that approximately 1 hour prior to arrival he developed substernal chest discomfort. Upon further questioning he states that really this has been intermittent over the course of the last week. Patient was seen here on and had it EKG that was unremarkable other than LVH, negative cardiac enzymes and was admitted to chest pain center for stress test. He has a left CT scan stress test that was negative and discharged home. Patient states that pain has persisted ever since. He does note some dyspepsia type symptoms, with slight amount of burning sensation in the chest, but does not take anything for this. His pain today is identical to the pain that he's been having for the remainder of the week. PFSH Past Medical History Hx Anticoagulant Therapy: Yes Arthritis: No Asthma: No Autoimmune Disease: No Anxiety: No Depression: No Heart Rhythm Problems: No Cancer: No Cardiovascular Problems: Yes High Cholesterol: Yes Chemotherapy: No Chest Pain: No Congestive Heart Failure: Yes COPD: No Cerebrovascular Accident: Yes (X4 TIA) Diabetes: No Diminished Hearing: No Endocrine: No Gastrointestinal Disorders: No GERD: No Genitourinary: Yes Headaches: No Hiatal Hernia: No Heparin Induced Thrombocytopen: No Hypertension: Yes Immune Disorder: No Implanted Vascular Access Dvce: No Kidney Stones: No Musculoskeletal: No Neurologic: Yes Psychiatric: No Reproductive: No Respiratory: No Immunizations Current: Yes Migraines: No Radiation Therapy: No Renal Failure: No Seizures: No Sickle Cell Disease: No Sleep Apnea: No Thyroid Disease: No Ulcer: No Past Surgical History Abdominal Surgery: No AICD: No Arteriovenous Shunt: No Cardiac Surgery: No Ear Surgery: No Endocrine Surgery: No Eye Surgery: No Genitourinary Surgery: No Gynecologic Surgery: No Insulin Pump: No Joint Replacement: No Neurologic Surgery: No Oral Surgery: No Pacemaker: No Thoracic Surgery: No Other Surgery: No Social History Alcohol Use: No Tobacco Use: No Substance Use: No Allergies-Medications (Allergen,Severity, Reaction): Coded Allergies: No Known Allergies (Unverified , 08/18/16) Reported Meds & Prescriptions Reported Meds & Active Scripts Active Hydralazine (Hydralazine HCl) 25 Mg Tab 25 Mg PO Q8HR Catapres (Clonidine) 0.2 Mg Tab 0.2 Mg PO TID Reported Hydroxyzine Pamoate 50 Mg Cap 50 Mg PO DAILY Warfarin 5 Mg Tab 5 Mg PO DAILY Lisinopril 20 Mg Tab 20 Mg PO DAILY Pravastatin 40 Mg Tab 40 Mg PO DAILY Amlodipine (Amlodipine Besylate) 10 Mg Tab 10 Mg PO DAILY Review of Systems Except as stated in HPI: all other systems reviewed are Neg Physical Exam Narrative GENERAL: Well-appearing middle-aged male in no acute distress SKIN: Warm and dry. HEAD: Normocephalic. EYES: No scleral icterus. No injection or drainage. ENT: Mucous membranes pink and moist. NECK: Supple CARDIOVASCULAR: Regular rate and rhythm. No murmur appreciated. RESPIRATORY: No accessory muscle use. Clear to auscultation. Breath sounds equal bilaterally. GASTROINTESTINAL: Abdomen soft, non-tender, nondistended. MUSCULOSKELETAL: No obvious deformities. No edema. NEUROLOGICAL: Awake and alert. Motor grossly within normal limits. Normal speech. PSYCHIATRIC: Appropriate mood and affect; insight and judgment normal. Data Data Last Documented VS Vital Signs Date Time Temp Pulse Resp B/P Pulse Ox O2 Delivery O2 Flow Rate FiO2 08/20/16 13:53 99 Nasal Cannula 2 08/20/16 13:53 65 18 08/20/16 13:44 98.0 135/80 Orders Electrocardiogram (08/20/16 ) Basic Metabolic Panel (Bmp) (08/20/16 13:50) Complete Blood Count With Diff (08/20/16 13:50) Troponin I (08/20/16 13:50) Ecg Monitoring (08/20/16 13:50) Iv Access Insert/Monitor (08/20/16 13:50) Oximetry (08/20/16 13:50) Aspirin Chew (Aspirin Chew) (08/20/16 14:00) Sodium Chloride 0.9% Flush (Ns Flush) (08/20/16 14:00) Nitroglycerin Sl (Nitrostat Sl) (08/20/16 14:00) Ketorolac Inj (Toradol Inj) (08/20/16 14:00) Labs Laboratory Tests Test 08/20/16 13:55 White Blood Count 6.5 TH/MM3 Red Blood Count 6.00 MIL/MM3 Hemoglobin 15.4 GM/DL Hematocrit 46.8 % Mean Corpuscular Volume 78.0 FL Mean Corpuscular Hemoglobin 25.7 PG Mean Corpuscular Hemoglobin 32.9 % Concent Red Cell Distribution Width 17.6 % Platelet Count 273 TH/MM3 Mean Platelet Volume 7.3 FL Neutrophils (%) (Auto) 57.6 % Lymphocytes (%) (Auto) 30.9 % Monocytes (%) (Auto) 8.5 % Eosinophils (%) (Auto) 2.5 % Basophils (%) (Auto) 0.5 % Neutrophils # (Auto) 3.7 TH/MM3 Lymphocytes # (Auto) 2.0 TH/MM3 Monocytes # (Auto) 0.6 TH/MM3 Eosinophils # (Auto) 0.2 TH/MM3 Basophils # (Auto) 0.0 TH/MM3 CBC Comment DIFF FINAL Differential Comment Sodium Level 139 MEQ/L Potassium Level 4.2 MEQ/L Chloride Level 106 MEQ/L Carbon Dioxide Level 24.7 MEQ/L Anion Gap 8 MEQ/L Blood Urea Nitrogen 17 MG/DL Creatinine 1.56 MG/DL Estimat Glomerular Filtration 57 ML/MIN Rate Random Glucose 92 MG/DL Calcium Level 8.6 MG/DL Troponin I LESS THAN 0.02 NG/ML MDM Medical Decision Making Medical Screen Exam Complete: Yes Emergency Medical Condition: Yes Medical Record Reviewed: Yes Differential Diagnosis 51-year-old male with history of HTN, HLD and previous CVA who presents emergency Department with intermittent chest pain over the course the last week after negative CT scan stress test obtained 2 days ago. Differential includes atypical chest pain, GERD, and less likely ACS, PE or dissection. Narrative Course Patient placed on monitor, IV established and blood obtained. Twelve-lead EKG shows evidence of LVH with strain type pattern with T-wave inversions in the lateral leads. This is similar to patient's previous EKG. Given nitroglycerin , Toradol, aspirin. He had a chest x-ray and previous ED workup that was unremarkable. CBC, BMP, troponin obtained and unremarkable. My suspicion is that this is more likely GI related or atypical. Patient will be started on PPI for home. Diagnosis Primary Impression: Atypical chest pain Referrals: Environmental Compliance Inspector call for appointment Primary Care Physician call for appointment Additional Instructions: You had a cardiac stress test just 2 days ago making the likelihood that this is your heart is exceedingly low, as discussed. Antacid as prescribed. Follow- up with primary care provider as discussed and return to the ER for the warning signs discussed. Med/Other Pt SpecificInfo: Prescription(s) given Scripts Pantoprazole (Protonix)40 Mg Tab40 Mg PO DAILY #30 TAB Ref 0 Prov:Emma Hanna MD 08/20/16 Disposition: 01 DISCHARGE HOME Condition: Stable Emma Hanna MD Aug 20, 2016 14:35
--- NOTE | 2016-08-20 17:59 | EKG ---
Date Performed: 08/20/2016 Time Performed: 13:48:36 PTAGE: 51 years EKG: Sinus rhythm WITH FIRST DEGREE AV BLOCK LEFT VENTRICULAR HYPERTROPHY AND ST-T CHANGE ABNORMAL ECG NO SIGNIFICANT CHANGE FROM PRIOR ELECTROCARDIOGRAM. PREVIOUS TRACING : 08/18/2016 13.18 DOCTOR: Ruperto Portillo Interpretating Date/Time 08/20/2016 17:57:51
== END 2016-08-20 15:17 | disposition home or self-care (01) ==
LOC: NEPE 13:40
DX: R07.89 Other chest pain (principal); R94.31 Abnormal electrocardiogram [ECG] [EKG]; I10 Essential (primary) hypertension; I50.9 Heart failure, unspecified; Z79.01 Long term (current) use of anticoagulants
CPT/HCPCS: 80048; 84484; 85025; 93005; 96374; 99285; J1885

== ENCOUNTER 2017-11-16 19:31 | Emergency (ER) | payer OTHER ==
[~2017-11-16] VITALS: Ht 172.7 cm; Wt 98.5 kg
[~2017-11-16 19:31] MED LIST changes: +PROT40TA PO
[2017-11-16 19:35] VITALS: BP 152/83; PULSE 76; RESP 18; TEMP 98.4; O2SAT 96
[2017-11-16] MEDS ORDERED: SODIUM CHLOR 0.9% 1000 ML INJ 1,000 ML IV SCH (20:28)
[2017-11-16] MEDS ORDERED: SODIUM CHLORIDE 0.9% FLUSH 10 ML FLUSH IVF PRN (20:30)
--- NOTE | 2017-11-16 20:37 | PD ---
HPI Chief Complaint: Bleeding Time Seen by Provider: 20:27 Travel History International Travel<30 days: No Contact w/Intl Traveler<30days: No Traveled to known affect area: No History of Present Illness HPI The patient is a 52-year-old male that is been on Coumadin since 2015 because of multiple strokes. He has never had a problem with it until today when he noted bright red blood in the stool. Bright red blood quickly decreased and he is not had any bowel movements since. He denies any fever, abdominal pain, nausea, vomiting or diarrhea. He denies any syncopal or near syncopal spells. He denies any chest pain or shortness of breath. PFSH Past Medical History Hx Anticoagulant Therapy: Yes (warfarin) Arthritis: No Asthma: No Autoimmune Disease: No Anxiety: No Depression: No Heart Rhythm Problems: No Cancer: No Cardiovascular Problems: Yes High Cholesterol: Yes Chemotherapy: No Chest Pain: No Congestive Heart Failure: Yes COPD: No Cerebrovascular Accident: Yes (CVA in 2014) Diabetes: No Diminished Hearing: No Endocrine: No Gastrointestinal Disorders: No GERD: No Genitourinary: Yes Headaches: No Hiatal Hernia: No Heparin Induced Thrombocytopen: No Hypertension: Yes Immune Disorder: No Implanted Vascular Access Dvce: No Kidney Stones: No Musculoskeletal: No Neurologic: Yes Psychiatric: No Reproductive: No Respiratory: No Immunizations Current: Yes Migraines: No Radiation Therapy: No Renal Failure: No Seizures: No Sickle Cell Disease: No Sleep Apnea: No Thyroid Disease: No Ulcer: No Tetanus Vaccination: Unknown Influenza Vaccination: No Past Surgical History Abdominal Surgery: No AICD: No Arteriovenous Shunt: No Cardiac Surgery: No Ear Surgery: No Endocrine Surgery: No Eye Surgery: No Genitourinary Surgery: No Gynecologic Surgery: No Insulin Pump: No Joint Replacement: No Neurologic Surgery: No Oral Surgery: No Pacemaker: No Thoracic Surgery: No Other Surgery: No Social History Alcohol Use: No Tobacco Use: No Substance Use: No Allergies-Medications (Allergen,Severity, Reaction): Coded Allergies: No Known Allergies (Unverified Adverse Reaction, Unknown, 11/16/17) Reported Meds & Prescriptions Reported Meds & Active Scripts Active Protonix (Pantoprazole Sodium) 40 Mg Tab 40 Mg PO DAILY Hydralazine (Hydralazine HCl) 25 Mg Tab 25 Mg PO Q8HR Catapres (Clonidine) 0.2 Mg Tab 0.2 Mg PO TID Reported Hydroxyzine Pamoate 50 Mg Cap 50 Mg PO DAILY Warfarin 5 Mg Tab 5 Mg PO DAILY Lisinopril 20 Mg Tab 20 Mg PO DAILY Pravastatin 40 Mg Tab 40 Mg PO DAILY Amlodipine (Amlodipine Besylate) 10 Mg Tab 10 Mg PO DAILY Review of Systems Except as stated in HPI: all other systems reviewed are Neg Physical Exam Narrative GENERAL: The patient is alert, oriented 3 in no apparent distress. His blood pressure is 152/83 and the rest of the vital signs are normal. SKIN: Focused skin assessment warm/dry. HEAD: Atraumatic. Normocephalic. EYES: Pupils equal and round. No scleral icterus. No injection or drainage. ENT: No nasal bleeding or discharge. Mucous membranes pink and moist. NECK: Trachea midline. No JVD. CARDIOVASCULAR: Regular rate and rhythm. No murmur appreciated. RESPIRATORY: No accessory muscle use. Clear to auscultation. Breath sounds equal bilaterally. GASTROINTESTINAL: Abdomen soft, non-tender, nondistended. Hepatic and splenic margins not palpable. No guarding or rebound is present. MUSCULOSKELETAL: No obvious deformities. No clubbing. No cyanosis. No edema. NEUROLOGICAL: Awake and alert. No obvious cranial nerve deficits. Motor grossly within normal limits. Normal speech. PSYCHIATRIC: Appropriate mood and affect; insight and judgment normal. RECTAL EXAM: No masses or tenderness, stool is minimal volume in the rectum and slightly blood-tinged, guaiac positive. No masses are felt in the rectum. Data Data Last Documented VS Vital Signs Date Time Temp Pulse Resp B/P (MAP) Pulse Ox O2 Delivery O2 Flow Rate FiO2 11/16/17 20:47 16 98 Room Air 11/16/17 19:35 98.4 76 152/83 (106) Orders Orders Basic Metabolic Panel (Bmp) (11/16/17 20:28) Comprehensive Metabolic Panel (11/16/17 20:28) Prothrombin Time / Inr (Pt) (11/16/17 20:28) Urinalysis - C+S If Indicated (11/16/17 20:28) Ecg Monitoring (11/16/17 20:28) Iv Access Insert/Monitor (11/16/17 20:28) Oximetry (11/16/17 20:28) Sodium Chlor 0.9% 1000 Ml Inj (Ns 1000 M (11/16/17 20:28) Sodium Chloride 0.9% Flush (Ns Flush) (11/16/17 20:30) Complete Blood Count With Diff (11/16/17 20:58) Labs Laboratory Tests Test 11/16/17 20:43 11/16/17 21:00 White Blood Count 6.6 TH/MM3 Red Blood Count 5.59 MIL/MM3 Hemoglobin 14.6 GM/DL Hematocrit 45.6 % Mean Corpuscular Volume 81.5 FL Mean Corpuscular Hemoglobin 26.1 PG Mean Corpuscular Hemoglobin Concent 32.1 % Red Cell Distribution Width 15.4 % Platelet Count 280 TH/MM3 Mean Platelet Volume 7.5 FL Neutrophils (%) (Auto) 61.8 % Lymphocytes (%) (Auto) 25.9 % Monocytes (%) (Auto) 7.5 % Eosinophils (%) (Auto) 3.3 % Basophils (%) (Auto) 1.5 % Neutrophils # (Auto) 4.1 TH/MM3 Lymphocytes # (Auto) 1.7 TH/MM3 Monocytes # (Auto) 0.5 TH/MM3 Eosinophils # (Auto) 0.2 TH/MM3 Basophils # (Auto) 0.1 TH/MM3 CBC Comment DIFF FINAL Differential Comment Prothrombin Time 21.6 SEC Prothromb Time International Ratio 2.1 RATIO Blood Urea Nitrogen 22 MG/DL Creatinine 1.60 MG/DL Random Glucose 96 MG/DL Total Protein 7.9 GM/DL Albumin 3.6 GM/DL Calcium Level 8.4 MG/DL Alkaline Phosphatase 98 U/L Aspartate Amino Transf (AST/SGOT) 22 U/L Alanine Aminotransferase (ALT/SGPT) 39 U/L Total Bilirubin 0.2 MG/DL Sodium Level 142 MEQ/L Potassium Level 4.8 MEQ/L Chloride Level 106 MEQ/L Carbon Dioxide Level 29.0 MEQ/L Anion Gap 7 MEQ/L Estimat Glomerular Filtration Rate 56 ML/MIN Urine Color YELLOW Urine Turbidity CLEAR Urine pH 7.0 Urine Specific [place] 1.015 Urine Protein NEG mg/dL Urine Glucose (UA) NEG mg/dL Urine Ketones NEG mg/dL Urine Occult Blood NEG Urine Nitrite NEG Urine Bilirubin NEG Urine Urobilinogen 0.2 MG/DL Urine Leukocyte Esterase NEG Urine RBC 0-3 /hpf Urine WBC 0-2 /hpf Urine Squamous Epithelial Cells 0-5 /hpf Microscopic Urinalysis Comment CULT NOT INDICATED MDM Medical Decision Making Medical Screen Exam Complete: Yes Emergency Medical Condition: Yes Medical Record Reviewed: Yes Interpretation(s) The CBC shows normal with a hemoglobin of 14.6. The complete metabolic profile shows a BUN of 22, creatinine 1.6 with GFR 56 and calcium 8.4 but is otherwise normal. The pro time is 21.6 with an INR of 2.1. The urinalysis is normal. Differential Diagnosis Coumadin coagulopathy, anemia, electrolyte disorder, GI bleed needing transfusion, minimal GI bleed Narrative Course The patient is correctly anticoagulated on Coumadin. The GI bleed was minimal and the patient has not had any further bleeding, it is now 10 PM here tonight. The patient will go home and follow-up with his primary care physician, hopefully this week. He is not anemic and is asymptomatic. Diagnosis Primary Impression: GI bleed Additional Impression: Anticoagulated on warfarin Additional Instructions: Follow-up with your primary care physician, touch base with him this week.. The bleeding appears to be stopped and it is minimal. You are not anemic. Med/Other Pt SpecificInfo: No Change to Meds Disposition: 01 DISCHARGE HOME Condition: Stable Mehran Phelps MD Nov 16, 2017 20:37
[2017-11-16 20:47] VITALS: RESP 16; O2SAT 98
[2017-11-16 21:00] LABS: CHLORIDE 106 MEQ/L (98-107); SODIUM (NA) 142 MEQ/L (136-145)
[2017-11-16 21:03] LABS: CALCIUM 8.4 MG/DL (8.5-10.1)
[2017-11-16 21:04] LABS: ALBUMIN 3.6 GM/DL (3.4-5.0); BLOOD UREA NITROGEN 22 MG/DL (7-18); GLUCOSE,RANDOM 96 MG/DL (74-106); INTERNATIONAL NORMALIZED RATIO 2.1 RATIO; PROTHROMBIN TIME - PATIENT 21.6 SEC (9.8-11.6)
[2017-11-16 21:05] LABS: AUTOMATED NEUTROPHIL # 4.1 TH/MM3 (1.8-7.7); BASOPHIL # 0.1 TH/MM3 (0-0.2); BASOPHIL % 1.5 % (0.0-2.0); EOSINOPHIL # 0.2 TH/MM3 (0-0.4); EOSINOPHIL % 3.3 % (0.0-4.0); HEMATOCRIT 45.6 % (39.0-51.0); HEMOGLOBIN 14.6 GM/DL (13.0-17.0); LYMPH % 25.9 % (9.0-44.0); LYMPHOCYTE # 1.7 TH/MM3 (1.0-4.8); MEAN CELL VOLUME 81.5 FL (80.0-100.0); MEAN CORPUSCULAR HEMOGLOBIN 26.1 PG (27.0-34.0); MEAN CORPUSCULAR HGB CONC 32.1 % (32.0-36.0); MEAN PLATELET VOLUME 7.5 FL (7.0-11.0); MONO % 7.5 % (0.0-8.0); MONOCYTE # 0.5 TH/MM3 (0-0.9); NEUT % 61.8 % (16.0-70.0); PLATELET COUNT 280 TH/MM3 (150-450); RED BLOOD COUNT 5.59 MIL/MM3 (4.50-5.90); RED CELL DISTRIBUTION WIDTH 15.4 % (11.6-17.2); WHITE BLOOD COUNT 6.6 TH/MM3 (4.0-11.0)
[2017-11-16 21:07] LABS: ALT (GPT) 39 U/L (12-78); AST (GOT) 22 U/L (15-37); GLOMERULAR FILTRATION RATE 56 ML/MIN (>89)
[2017-11-16 21:09] LABS: TOTAL BILIRUBIN ADULT 0.2 MG/DL (0.2-1.0); TOTAL PROTEIN 7.9 GM/DL (6.4-8.2)
[2017-11-16 21:10] LABS: ALKALINE PHOSPHATASE 98 U/L (45-117)
[2017-11-16 21:32] LABS: BILIRUBIN, URINE NEG (NEG); BLOOD, URINE NEG (NEG); GLUCOSE,URINE NEG (NEG); KETONE, URINE NEG (NEG); NITRITE,URINE NEG (NEG); URINE COLOR YELLOW (YELLW/STRAW); URINE LEUKOCYTE ESTERASE NEG (NEG)
[2017-11-16 21:43] LABS: RBC, URINE 0-3 /hpf (0-3); SQUAMOUS EPITHELIAL CELL URINE 0-5 /hpf (0-5); WBC, URINE 0-2 /hpf (0-5)
== END 2017-11-16 22:17 | disposition home or self-care (01) ==
LOC: PHED 19:31
DX: K92.2 Gastrointestinal hemorrhage, unspecified (principal); E78.00 Pure hypercholesterolemia, unspecified; I11.0 Hypertensive heart disease with heart failure; I50.9 Heart failure, unspecified; Z86.73 Personal history of transient ischemic attack (TIA), and cerebral infarction without residual deficits; Z79.01 Long term (current) use of anticoagulants; Z79.899 Other long term (current) drug therapy
CPT/HCPCS: 80053; 81001; 85025; 85610; 96360; 99284; J7030

== ENCOUNTER 2017-11-19 19:54 | Emergency (ER) | payer OTHER ==
[2017-11-19 20:21] VITALS: BP 137/77; PULSE 72; RESP 18; TEMP 98.5; O2SAT 97
[2017-11-19] MEDS ORDERED: HYDR-3801 PO (21:12)
[2017-11-19] MEDS ORDERED: ASPI-516 CHEW (21:12)
--- NOTE | 2017-11-19 21:31 | PD ---
HPI Chief Complaint: Pain: Acute or Chronic Time Seen by Provider: 21:11 Travel History International Travel<30 days: No Contact w/Intl Traveler<30days: No Traveled to known affect area: No History of Present Illness HPI 52-year-old male complains of left leg pain and blood per stool. Patient states that he has blood in the stool for the past several days. Patient states that he was seen in emergency room 3 days ago with the same complaint. Rectal exam Hemoccult was positive. CBC and PT/INR done at that time. Patient was advised to follow-up with team foreman. Patient has history of CVA in the past and on Coumadin now. Patient denies any history of previous GI bleed problem in the past. Patient denies any headache. Patient denies any chest pain or shortness of breath. Patient denies abdominal pain. Patient states that he has anterior left thigh pain with walking. Patient denies any pain at rest. Patient denies any recent injury to the left leg. Patient stated the pain and cramping pain localized to the left anterior left thigh. Patient denies any pain radiation. Patient denies any leg pain now on resting in bed. Patient has history of hyperlipidemia, CHF, hypertension. Patient states that he has increasing lower extremity swelling for the past few months. PFSH Past Medical History Hx Anticoagulant Therapy: Yes (warfarin) Arthritis: No Asthma: No Autoimmune Disease: No Anxiety: No Depression: No Heart Rhythm Problems: No Cancer: No Cardiovascular Problems: Yes High Cholesterol: Yes Chemotherapy: No Chest Pain: No Congestive Heart Failure: Yes COPD: No Cerebrovascular Accident: Yes (CVA in 2014) Diabetes: No Diminished Hearing: No Endocrine: No Gastrointestinal Disorders: No GERD: No Genitourinary: Yes Headaches: No Hiatal Hernia: No Heparin Induced Thrombocytopen: No Hypertension: Yes Immune Disorder: No Implanted Vascular Access Dvce: No Kidney Stones: No Musculoskeletal: No Neurologic: Yes Psychiatric: No Reproductive: No Respiratory: No Immunizations Current: Yes Migraines: No Radiation Therapy: No Renal Failure: No Seizures: No Sickle Cell Disease: No Sleep Apnea: No Thyroid Disease: No Ulcer: No Past Surgical History Surgical History: No Previous Surgery Abdominal Surgery: No AICD: No Arteriovenous Shunt: No Cardiac Surgery: No Ear Surgery: No Endocrine Surgery: No Eye Surgery: No Genitourinary Surgery: No Gynecologic Surgery: No Insulin Pump: No Joint Replacement: No Neurologic Surgery: No Oral Surgery: No Pacemaker: No Thoracic Surgery: No Other Surgery: No Social History Alcohol Use: No Tobacco Use: No Substance Use: No Allergies-Medications (Allergen,Severity, Reaction): Coded Allergies: No Known Allergies (Unverified Adverse Reaction, Unknown, 11/19/17) Reported Meds & Prescriptions Reported Meds & Active Scripts Active Catapres (Clonidine) 0.2 Mg Tab 0.2 Mg PO TID Reported Aspirin 81 Mg Chew 81 Mg CHEW DAILY Hydralazine (Hydralazine HCl) 100 Mg Tab 25 Mg PO TID Take with meals Warfarin 5 Mg Tab 5 Mg PO DAILY Lisinopril 20 Mg Tab 20 Mg PO DAILY Pravastatin 40 Mg Tab 40 Mg PO DAILY Amlodipine (Amlodipine Besylate) 10 Mg Tab 10 Mg PO DAILY Review of Systems General / Constitutional: No: Fever Eyes: No: Visual changes HENT: No: Headaches Cardiovascular: No: Chest Pain or Discomfort Respiratory: No: Shortness of Breath Gastrointestinal: Positive: Hematochezia, No: Abdominal Pain Genitourinary: No: Dysuria Musculoskeletal: Positive: Pain Skin: No Rash Neurologic: No: Weakness Psychiatric: No: Depression Endocrine: No: Polydipsia Hematologic/Lymphatic: No: Easy Bruising Physical Exam Narrative GENERAL: Well-nourished, well-developed patient. SKIN: Focused skin assessment warm/dry. HEAD: Normocephalic. EYES: No scleral icterus. No injection or drainage. NECK: Supple, trachea midline. No JVD or lymphadenopathy. CARDIOVASCULAR: Regular rate and rhythm without murmurs, gallops, or rubs. RESPIRATORY: Breath sounds equal bilaterally. No accessory muscle use. GASTROINTESTINAL: Abdomen soft, non-tender, nondistended. Rectal exam Hemoccult positive. MUSCULOSKELETAL: No cyanosis, or edema. BACK: Nontender without obvious deformity. No CVA tenderness. Neurologic exam: Patient is awake and alert oriented 3. No obvious focal neurological deficit. Data Data Last Documented VS Vital Signs Date Time Temp Pulse Resp B/P (MAP) Pulse Ox O2 Delivery O2 Flow Rate FiO2 11/19/17 20:21 98.5 72 18 137/77 (97) 97 Orders Orders Complete Blood Count With Diff (11/19/17 21:21) Basic Metabolic Panel (Bmp) (11/19/17 21:21) Prothrombin Time / Inr (Pt) (11/19/17 21:21) Act Partial Throm Time (Ptt) (11/19/17 21:21) Iv Access Insert/Monitor (11/19/17 21:21) Ecg Monitoring (11/19/17 21:21) Oximetry (11/19/17 21:21) B-Type Natriuretic Peptide (11/19/17 21:28) Ct Abd/Pel W/O Iv Contrast (11/20/17 22:11) Labs Laboratory Tests Test 11/19/17 22:10 White Blood Count 7.3 TH/MM3 Red Blood Count 5.57 MIL/MM3 Hemoglobin 14.7 GM/DL Hematocrit 44.6 % Mean Corpuscular Volume 80.1 FL Mean Corpuscular Hemoglobin 26.4 PG Mean Corpuscular Hemoglobin Concent 32.9 % Red Cell Distribution Width 16.6 % Platelet Count 251 TH/MM3 Mean Platelet Volume 7.7 FL Neutrophils (%) (Auto) 63.3 % Lymphocytes (%) (Auto) 25.5 % Monocytes (%) (Auto) 7.6 % Eosinophils (%) (Auto) 3.0 % Basophils (%) (Auto) 0.6 % Neutrophils # (Auto) 4.6 TH/MM3 Lymphocytes # (Auto) 1.9 TH/MM3 Monocytes # (Auto) 0.6 TH/MM3 Eosinophils # (Auto) 0.2 TH/MM3 Basophils # (Auto) 0.0 TH/MM3 CBC Comment DIFF FINAL Differential Comment Prothrombin Time 20.0 SEC Prothromb Time International Ratio 2.0 RATIO Activated Partial Thromboplast Time 31.3 SEC Blood Urea Nitrogen 24 MG/DL Creatinine 1.82 MG/DL Random Glucose 93 MG/DL Calcium Level 8.5 MG/DL Sodium Level 144 MEQ/L Potassium Level 4.9 MEQ/L Chloride Level 110 MEQ/L Carbon Dioxide Level 26.7 MEQ/L Anion Gap 7 MEQ/L Estimat Glomerular Filtration Rate 48 ML/MIN B-Type Natriuretic Peptide 6 PG/ML MDM Medical Decision Making Medical Screen Exam Complete: Yes Emergency Medical Condition: Yes Interpretation(s) 12:04 AM. CBC WBC 7.3. Hemoglobin 14.7. Hematocrit 44.6. Normal differential. BUN 24. Creatinine 1.82. GFR 48. BNP 6. INR 2.0. 1:09 AM. Last Impressions Abdomen/Pelvis CT 6/17/18 2211 Signed Impressions: CONCLUSION: 1. Unremarkable CT abdomen and pelvis. Differential Diagnosis Differential diagnosis including upper versus lower GI bleed, diverticulosis, diverticulitis, AV malformation, hemorrhoidal bleed. Narrative Course 52-year-old male with blood per stool and left leg pain on walking and weightbearing. Diagnosis Primary Impression: GI bleed Qualified Codes: K92.2 - Gastrointestinal hemorrhage, unspecified Additional Impressions: Anticoagulated on Coumadin Muscle strain of left thigh Qualified Codes: S76.912A - Strain of unspecified muscles, fascia and tendons at thigh level, left thigh, initial encounter Patient Instructions: General Instructions Additional Instructions: Hold warfarin today and tomorrow. Resume warfarin again on Tuesday. Follow-up with team foreman and personal physician. Hold warfarin and return to the emergency room immediately if increasing rectal bleeding. Med/Other Pt SpecificInfo: Med Stopped Disposition: 01 DISCHARGE HOME Condition: Stable Narayan Cantu MD Nov 19, 2017 21:31
[2017-11-19 22:33] LABS: AUTOMATED NEUTROPHIL # 4.6 TH/MM3 (1.8-7.7); BASOPHIL % 0.6 % (0.0-2.0); EOSINOPHIL # 0.2 TH/MM3 (0-0.4); HEMATOCRIT 44.6 % (39.0-51.0); HEMOGLOBIN 14.7 GM/DL (13.0-17.0); LYMPH % 25.5 % (9.0-44.0); LYMPHOCYTE # 1.9 TH/MM3 (1.0-4.8); MEAN CELL VOLUME 80.1 FL (80.0-100.0); MEAN CORPUSCULAR HEMOGLOBIN 26.4 PG (27.0-34.0); MEAN CORPUSCULAR HGB CONC 32.9 % (32.0-36.0); MEAN PLATELET VOLUME 7.7 FL (7.0-11.0); MONO % 7.6 % (0.0-8.0); MONOCYTE # 0.6 TH/MM3 (0-0.9); NEUT % 63.3 % (16.0-70.0); PLATELET COUNT 251 TH/MM3 (150-450); RED BLOOD COUNT 5.57 MIL/MM3 (4.50-5.90); RED CELL DISTRIBUTION WIDTH 16.6 % (11.6-17.2); WHITE BLOOD COUNT 7.3 TH/MM3 (4.0-11.0)
[2017-11-19 23:10] LABS: BICARBONATE 26.7 MEQ/L (21.0-32.0); CALCIUM 8.5 MG/DL (8.5-10.1); CREATININE 1.82 MG/DL (0.60-1.30)
--- NOTE | 2017-11-20 01:04 | RADRPT ---
EXAM DATE: 11/20/2017 12:40 AM EDT AGE/SEX: 52 years / Male INDICATIONS: Blood in stool CLINICAL DATA: This is the patient's initial encounter. Patient reports that signs and symptoms have been present for 1 day and indicates a pain score of 0/10. MEDICAL/SURGICAL HISTORY: Cardiovascular disease. Cerebrovascular disease. Hypertension. None . RADIATION DOSE: 12.42 CTDI (mGy) COMPARISON: No prior exams available for comparison. TECHNIQUE: Multiple contiguous axial images were obtained through the abdomen. Images were obtained using multiple row detector helical technique. Using dose reduction techniques, radiation dose was ke pt as low as reasonably achievable to obtain optimal diagnostic quality images. FINDINGS: Lower Lungs: The visualized lower lungs are clear. Liver: The liver has a homogeneous density without space-occupying lesion. There is no dilation of th e biliary tree. Spleen: Homogeneous density without enlargement. Pancreas: Unremarkable without mass or calcification. Kidneys: Normal in size and shape. No evidence of mass or hydronephrosis. Adrenal Glands: Unremarkable. Aorta: The aorta and proximal iliac vessels are grossly unremarkable without aneurysmal dilation. Bowel/Mesentery: The bowel loops are grossly unremarkable. The cecum and sigmoid colon have a normal configuration. Normal appendix. Abdominal Wall: Intact. Retroperitoneum: No evidence of adenopathy in the retrocrural, para-aortic, or deep pelvic regions. Bladder: Contours are smooth. Reproductive Organs: No abnormal masses or calcifications seen. Inguinal: The inguinal region is unremarkable without evidence of adenopathy. Bony Structures: Unremarkable. CONCLUSION: 1. Unremarkable CT abdomen and pelvis. Electronically signed by: Jl Cueto MD 11/20/2017 1:03 AM EDT
== END 2017-11-20 01:36 | disposition home or self-care (01) ==
LOC: NEPD 19:54
DX: K92.2 Gastrointestinal hemorrhage, unspecified (principal); S76.912A Strain of unspecified muscles, fascia and tendons at thigh level, left thigh, initial encounter; K92.1 Melena; M79.89 Other specified soft tissue disorders; E78.5 Hyperlipidemia, unspecified; I11.0 Hypertensive heart disease with heart failure; I50.9 Heart failure, unspecified; E78.00 Pure hypercholesterolemia, unspecified; Z79.01 Long term (current) use of anticoagulants; Z79.899 Other long term (current) drug therapy; Z79.82 Long term (current) use of aspirin; Z86.73 Personal history of transient ischemic attack (TIA), and cerebral infarction without residual deficits; X58.XXXA Exposure to other specified factors, initial encounter
CPT/HCPCS: 74176; 80048; 83880; 85025; 85610; 85730; 99284